=== PATIENT | female | born 1935 | race Caucasian/White ===

== ENCOUNTER → 2016-12-01 | Outpatient (CLI) | payer OTHER ==
[~2016-12-01] MED LIST: ALPR-411 PO; CLTP PO; DABI1CAP PO; LRT5 PO; METO1TAB71 PO; PRLSR20 PO; SERT-234 PO; SIMV20TA2 PO; SNG10 PO; VITAMIN D 3 PO
[2016-12-01 17:59] LABS: CHOLESTEROL/HDL RATIO 2.7
== END | disposition home or self-care (01) ==
LOC: C.LABMFLN 13:23
PROVIDERS: ATTEND Family Medicine
DX: E78.5 Hyperlipidemia, unspecified (principal)